=== PATIENT | male | born 2000 | race Caucasian/White ===

== ENCOUNTER 2023-10-25 22:26 | Emergency (ER) | payer SELFPAY ==
[2023-10-25 22:27] VITALS: BP 121/76; PULSE 92; RESP 18; TEMP 36.8; O2SAT 98; BMI 23.6
--- NOTE | 2023-10-25 22:46 | ECG_ITS ---
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 Measurements Intervals [place] Rate: 98 P: 56 IA: 155 QRS: 78 QRSD: 92 T: 54 QT: 317 QTc: 405 Interpretive Statements SINUS RHYTHM No previous ECG available for comparison Electronically Signed On 10-26-2023 21:28:54 LAMP CLEANER by Katerine Wong M.D. [id number]
--- NOTE | 2023-10-25 22:50 | XRR_ITS ---
PROCEDURE INFORMATION: Exam: XR Chest Exam date and time: 10/25/2023 11:01 PM Age: 22 years old Clinical indication: Chest pressure; Patient HX: C/O chest pain; Additional info: Chest discomfort TECHNIQUE: Imaging protocol: Radiologic exam of the chest. Views: 1 view. COMPARISON: No relevant prior studies available. FINDINGS: Lungs: No consolidation. Pleural spaces: No large pleural effusion. No pneumothorax. Heart/Mediastinum: Unremarkable cardiomediastinal silhouette. Bones/joints: No acute abnormality. XR/XR chest 1V portable [id number] IMPRESSION: No acute findings.
[2023-10-25 23:02] LABS: Basophils % 0.3 %; Eosinophils % 0.1 %; Lymphocytes % 6.1 %; Mean Corpuscular HGB Conc 33.8 g/dL (30-55); Mean Corpuscular Hemoglobin 30.2 pg (27-33); Mean Corpuscular Volume 89.3 fl (82-101); Mean Platelet Volume 9.3 fL (7.4-10.4); Monocytes # 0.7 10^3/uL (0.2-0.9); Monocytes % 4.7 %; Neutrophils # 13.81 10^3/uL (1.8-7.7); Neutrophils % 88.4 %; Nucleated Red Blood Cells % 0 %; Platelet Count 266 10^3/cmm (157-399); Red Cell Distribution Width 12.4 % (12.1-15.1)
[2023-10-25 23:18] LABS: D Dimer 0.36 ug/mLFEU (0-0.59)
[2023-10-25 23:21] LABS: Troponin(5th) Baseline 14 ng/L (0-15)
--- NOTE | 2023-10-25 23:27 | ED_ITS ---
Documented by User: KARISSA Neri 10/26/23 00:16 HPI - Chest Pain 2 General: Chief Complaint: Chest Pain Stated Complaint: CP Time Seen by Provider: 10/25/23 22:51 History of Present Illness: 22-year-old male patient comes in today with illness for 2 days. Patient reports chills and chest discomfort. Patient also reports fatigue. Patient appears mildly unwell but not toxic. Patient appears in mild pain. Patient denies any chronic medical problems. Patient does vape. Associated symptoms: Reports fever(s) Review of Systems 2 General: Reports: 10 or more systems reviewed and unremarkable except in HPI and below Const: Reports: fever(s) and chills Card: Reports: chest pain Resp: Reports: pain on inspiration Physical Exam 2 Const: COMMON NORMALS: alert HENMT: COMMON NORMALS: normocephalic HEAD & SCALP: normocephalic Neck/C-Spine: COMMON NORMALS: full ROM Resp: COMMON NORMALS: normal respiratory effort and clear to auscultation bilaterally AUSCULTATION: clear to auscultation bilaterally Cardio: COMMON NORMALS: regular rate and regular rhythm RATE: regular rate RHYTHM: regular rhythm GI: COMMON NORMALS: non-tender Extremity: COMMON NORMALS: normal to inspection and no pedal edema Neuro: SENSORIUM/ORIENTATION: Yes alert Skin: COMMON NORMALS: turgor normal GENERAL SKIN EXAM: turgor normal Course 2 Vital Signs: Vital signs: Vital Signs Temperature 98.2 F 10/25/23 22:27 Pulse Rate 90 10/26/23 00:35 Respiratory Rate 18 10/26/23 00:35 Blood Pressure 121/76 10/25/23 22:27 Pulse Oximetry 99 10/26/23 00:35 Oxygen Delivery Me thod Room Air 10/25/23 23:35 MDM - Chest Pain Medical Decision Making 22-year-old male patient comes in today for complaints of pain with inspiration, chills, cough, and chest discomfort. On exam patient appears nontoxic. Lungs are clear to auscultation. No edema is noted in the extremities. Heart rates regular. Skins warm and dry. Vital signs are normal. Differential diagnosis includes not limited to pneumonia, bronchitis, upper respiratory infection, influenza, COVID-19, unlikely ACS, unlikely PE. D-dimer and troponin was normal at baseline. CBC had some mild leukocytosis at 15,000. Chest x-ray was unremarkable. COVID-19 test was negative. Patient be treated for acute bronchitis with antibiotic and steroid. Patient was recommended to follow-up with primary care, return to ED for new concerns. Lab Data 10/25/23 22:57 10/25/23 22:57 Radiology Impressions Chest X-Ray 10/25/23 22:50 IMPRESSION: No acute findings. Laboratory Results WBC 15.60 10^3/uL (3.29-11.43) H 10/25/23 22:57 RBC 5.60 10^6/uL (3.85-5.65) 10/25/23 22:57 Hgb 16.90 g/dL (11.27-16.99) 10/25/23 22:57 Hct 50.0 % (37-53) 10/25/23 22:57 MCV 89.3 fl (82-101) 10/25/23 22:57 MCH 30.2 pg (27-33) 10/25/23 22:57 MCHC 33.8 g/dL (30-55) 10/25/23 22:57 RDW 12.4 % (12.1-15.1) 10/25/23 22:57 Plt Count 266 10^3/cmm (157-399) 10/25/23 22:57 MPV 9.3 fL (7.4-10.4) 10/25/23 22:57 Neut % (Auto) 88.4 % 10/25/23 22:57 Lymph % (Auto) 6.1 % 10/25/23 22:57 [place] % (Auto) 4.7 % 10/25/23 22:57 Eos % (Auto) 0.1 % 10/25/23 22:57 Baso % (Auto) 0.3 % 10/25/23 22:57 Neut # (Auto) 13.81 10^3/uL (1.8-7.7) H 10/25/23 22:57 Lymph # (Auto) 1.0 10^3/uL (0.8-4.8) 10/25/23 22:57 [place] # (Auto) 0.7 10^3/uL (0.2-0.9) 10/25/23 22:57 Eos # (Auto) 0.0 10^3/uL (0.0-0.8) 10/25/23 22:57 Baso # (Auto) 0.0 10^3/uL (0.0-0.1) 10/25/23 22:57 Nucleated RBC % (auto) 0 % 10/25/23 22:57 Nucleated RBCs # 0.0 /100WBC 10/25/23 22:57 D-Dimer 0.36 ug/mLFEU (0-0.59) 10/25/23 22:57 Sodium 141 mmol/L (136-145) 10/25/23 22:57 Potassium 3.9 mmol/L (3.5-5.1) 10/25/23 22:57 Chloride 103 mmol/L (98-107) 10/25/23 22:57 Carbon Dioxide 25 mmol/L (22-29) 10/25/23 22:57 Anion Gap 16.9 (5-19) 10/25/23 22:57 BUN 11 mg/dL (6-20) 10/25/23 22:57 Creatinine 1.2 mg/dL (0.7-1.2) 10/25/23 22:57 GFR Calculation Not Reportable 10/25/23 22:57 Glucose 84 mg/dL (65-115) 10/25/23 22:57 Calculated Osmolality 291 mOsm/kg (285-295) 10/25/23 22:57 Calcium 10.3 mg/dL (8.5-10.5) 10/25/23 22:57 Total Bilirubin 1.0 mg/dL (0.15-1.2) 10/25/23 22:57 AST 22 U/L (0-40) 10/25/23 22:57 ALT 17 U/L (0-41) 10/25/23 22:57 Alkaline Phosphatase 82 U/L (40-130) 10/25/23 22:57 Troponin T Baseline 14 ng/L (0-15) 10/25/23 22:57 NT-Pro-B Natriuret Pep < 36 pg/mL (0-125) 10/25/23 22:57 Total Protein 8.0 g/dL (6.6-8.7) 10/25/23 22:57 Albumin 5.1 g/dL (3.5-5.2) 10/25/23 22:57 Globulin 2.9 g/dL (1.3-4.6) 10/25/23 22:57 Lipase 19 U/L (13-60) 10/25/23 22:57 SARS-CoV-2 Ag (Rapid) negative (Negative) 10/25/23 23:52 All radiology interpretation(s) finalized by discharge EKG Data EKG 1: EKG interpretation date: 10/26/23 EKG interpretation time: 00:10 Prior EKG tracings: not available for review Interpretation: EKG shows a sinus rhythm with a regular rate at [address] elevation or ectopy is noted. No prior exam was available for comparison. Computer generated interpretation: Sinus rhythm, normal EKG, unconfirmed report. Discharge Plan Discharge Patient Disposition: Home Clinical Impression: Acute bronchitis Qualifiers: Bronchitis organism: unspecified organism Qualified Code(s): J20.9 - Acute bronchitis, unspecified Condition: Stable Prescriptions: New doxycycline hyclate 100 mg capsule 100 mg PO BID 7 Days Qty: 14 0RF prednisone 20 mg tablet 20 mg PO DAILY 7 Days Qty: 7 0RF Discharge Orders: Discharge ED (Routine); Ordered 10/26/23 Ordered By: Jovan Baker Discharge Diet: Usual diet Discharge Activity: Increase activity as tolerated Patient Instructions: Acute Bronchitis (ED) Activity Restrictions/Additional Instructions: Drink plenty water and fluids. Take medications as directed. Use doxycycline for antibiotic. Use prednisone for inflammation, cough, and respiratory discomfort. Use Tylenol and ibuprofen for further pain relief. Follow-up with primary care for further instructions. Return to ED for new concerns. Coding Level of Care Code ED Lance Crewmember for Chg Fwd Documented by User: Bello Hines DO 10/26/23 01:08 HPI - Chest Pain 2 General: Chief Complaint: Chest Pain Stated Complaint: CP Time Seen by Provider: 10/25/23 22:51 Course 2 Vital Signs: Vital signs: Vital Signs Temperature 98.2 F 10/25/23 22:27 Pulse Rate 90 10/26/23 00:35 Respiratory Rate 18 10/26/23 00:35 Blood Pressure 121/76 10/25/23 22:27 Pulse Oximetry 99 10/26/23 00:35 Oxygen Delivery Me thod Room Air 10/25/23 23:35 MDM - Chest Pain Medical Decision Making 22-year-old male patient comes in today for complaints of pain with inspiration, chills, cough, and chest discomfort. On exam patient appears nontoxic. Lungs are clear to auscultation. No edema is noted in the extremities. Heart rates regular. Skins warm and dry. Vital signs are normal. Differential diagnosis includes not limited to pneumonia, bronchitis, upper respiratory infection, influenza, COVID-19, unlikely ACS, unlikely PE. D-dimer and troponin was normal at baseline. CBC had some mild leukocytosis at 15,000. Chest x-ray was unremarkable. COVID-19 test was negative. Patient be treated for acute bronchitis with antibiotic and steroid. Patient was recommended to follow-up with primary care, return to ED for new concerns. This patient was originally seen by KARISSA Sargent.? I agree with his history, evaluation, and treatment. Lab Data 10/25/23 22:57 10/25/23 22:57 Radiology Impressions Chest X-Ray 10/25/23 22:50 IMPRESSION: No acute findings. Laboratory Results WBC 15.60 10^3/uL (3.29-11.43) H 10/25/23 22:57 RBC 5.60 10^6/uL (3.85-5.65) 10/25/23 22:57 Hgb 16.90 g/dL (11.27-16.99) 10/25/23 22:57 Hct 50.0 % (37-53) 10/25/23 22:57 MCV 89.3 fl (82-101) 10/25/23 22:57 MCH 30.2 pg (27-33) 10/25/23 22:57 MCHC 33.8 g/dL (30-55) 10/25/23 22:57 RDW 12.4 % (12.1-15.1) 10/25/23 22:57 Plt Count 266 10^3/cmm (157-399) 10/25/23 22:57 MPV 9.3 fL (7.4-10.4) 10/25/23 22:57 Neut % (Auto) 88.4 % 10/25/23 22:57 Lymph % (Auto) 6.1 % 10/25/23 22:57 [place] % (Auto) 4.7 % 10/25/23 22:57 Eos % (Auto) 0.1 % 10/25/23 22:57 Baso % (Auto) 0.3 % 10/25/23 22:57 Neut # (Auto) 13.81 10^3/uL (1.8-7.7) H 10/25/23 22:57 Lymph # (Auto) 1.0 10^3/uL (0.8-4.8) 10/25/23 22:57 [place] # (Auto) 0.7 10^3/uL (0.2-0.9) 10/25/23 22:57 Eos # (Auto) 0.0 10^3/uL (0.0-0.8) 10/25/23 22:57 Baso # (Auto) 0.0 10^3/uL (0.0-0.1) 10/25/23 22:57 Nucleated RBC % (auto) 0 % 10/25/23 22:57 Nucleated RBCs # 0.0 /100WBC 10/25/23 22:57 D-Dimer 0.36 ug/mLFEU (0-0.59) 10/25/23 22:57 Sodium 141 mmol/L (136-145) 10/25/23 22:57 Potassium 3.9 mmol/L (3.5-5.1) 10/25/23 22:57 Chloride 103 mmol/L (98-107) 10/25/23 22:57 Carbon Dioxide 25 mmol/L (22-29) 10/25/23 22:57 Anion Gap 16.9 (5-19) 10/25/23 22:57 BUN 11 mg/dL (6-20) 10/25/23 22:57 Creatinine 1.2 mg/dL (0.7-1.2) 10/25/23 22:57 GFR Calculation Not Reportable 10/25/23 22:57 Glucose 84 mg/dL (65-115) 10/25/23 22:57 Calculated Osmolality 291 mOsm/kg (285-295) 12/02/23 22:57 Calcium 10.3 mg/dL (8.5-10.5) 10/25/23 22:57 Total Bilirubin 1.0 mg/dL (0.15-1.2) 10/25/23 22:57 AST 22 U/L (0-40) 10/25/23 22:57 ALT 17 U/L (0-41) 10/25/23 22:57 Alkaline Phosphatase 82 U/L (40-130) 10/25/23 22:57 Troponin T Baseline 14 ng/L (0-15) 10/25/23 22:57 NT-Pro-B Natriuret Pep < 36 pg/mL (0-125) 10/25/23 22:57 Total Protein 8.0 g/dL (6.6-8.7) 10/25/23 22:57 Albumin 5.1 g/dL (3.5-5.2) 10/25/23 22:57 Globulin 2.9 g/dL (1.3-4.6) 10/25/23 22:57 Lipase 19 U/L (13-60) 10/25/23 22:57 SARS-CoV-2 Ag (Rapid) negative (Negative) 10/25/23 23:52 Discharge Plan Discharge Patient Disposition: Home Clinical Impression: Acute bronchitis Qualifiers: Bronchitis organism: unspecified organism Qualified Code(s): J20.9 - Acute bronchitis, unspecified Condition: Stable Prescriptions: New doxycycline hyclate 100 mg capsule 100 mg PO BID 7 Days Qty: 14 0RF prednisone 20 mg tablet 20 mg PO DAILY 7 Days Qty: 7 0RF Discharge Orders: Discharge ED (Routine); Ordered 10/26/23 Ordered By: Jovan Baker Discharge Diet: Usual diet Discharge Activity: Increase activity as tolerated Patient Instructions: Acute Bronchitis (ED) Activity Restrictions/Additional Instructions: Drink plenty water and fluids. Take medications as directed. Use doxycycline for antibiotic. Use prednisone for inflammation, cough, and respiratory discomfort. Use Tylenol and ibuprofen for further pain relief. Follow-up with primary care for further instructions. Return to ED for new concerns. Coding Level of Care Code ED Lance Crewmember for Ian Vincent
[2023-10-25 23:35] VITALS: PULSE 81; RESP 18; O2SAT 97
[2023-10-25 23:35] LABS: Lipase 19 U/L (13-60)
[2023-10-25 23:40] LABS: Chloride 103 mmol/L (98-107); Sodium 141 mmol/L (136-145)
[2023-10-25] MEDS: dexamethasone 10 mg/mL INJ IM (23:49)
[2023-10-25] MEDS: doxycycline 100 mg Tablet PO (23:49)
--- NOTE | 2023-10-26 00:02 | ECG_ITS ---
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 Measurements Intervals [place] Rate: 79 P: 45 CO: 144 QRS: 74 QRSD: 98 T: 55 QT: 345 QTc: 397 Interpretive Statements SINUS RHYTHM No previous ECG available for comparison Electronically Signed On 10-26-2023 21:34:44 HAT FORMING MACHINE FEEDER by Katerine Wong M.D. [id number]
[2023-10-26 00:11] LABS: SARS Covid-2 Antigen negative (Negative)
[2023-10-26 00:15] LABS: Anion Gap 16.9 (5-19); Blood Urea Nitrogen 11 mg/dL (6-20); Calcium 10.3 mg/dL (8.5-10.5); Carbon Dioxide 25 mmol/L (22-29); Glucose 84 mg/dL (65-115); Osmolality Calculated 291 mOsm/kg (285-295); Potassium 3.9 mmol/L (3.5-5.1)
[2023-10-26 00:16] LABS: Alanine Aminotransferase 17 U/L (0-41); Albumin Level 5.1 g/dL (3.5-5.2); Alkaline Phosphatase 82 U/L (40-130); Aspartate Amino Transferase 22 U/L (0-40); Globulin 2.9 g/dL (1.3-4.6); NT Pro B Type Natriuretic Pept < 36 pg/mL (0-125)
[2023-10-26 00:35] VITALS: PULSE 90; RESP 18; O2SAT 99
== END 2023-10-26 00:37 | disposition home or self-care (01) ==
PROVIDERS: Emergency Provider Nurse Practitioner Family
DX: J20.9 Acute bronchitis, unspecified (principal); Z11.52 Encounter for screening for COVID-19
CPT/HCPCS: 71045; 80053; 83690; 83880; 84484; 85025; 85378; 87426; 93005; 96372; 99285; J1100